=== PATIENT | male | born 1955 | race Caucasian/White ===

== ENCOUNTER 2023-06-30 09:40 | Outpatient (AMB) | payer MEDICARE, BC, SELFPAY ==
[2023-06-30 09:54] VITALS: BP 135/93; PULSE 103; RESP 18; TEMP 36.6; O2SAT 98; BMI 26.5
--- NOTE | 2023-06-30 09:54 | A.OFFVIS_ITS ---
Intake Vital Signs 3 06/30/23 09:54 Height 5 ft 11 in Weight 190 lb BMI 26.5 BP 135/93 H Blood Pressure Location Lt brachial Position Sitting Respiration 18 Pulse 103 H Pulse Source Pulse Oximeter Temp 98 F Pulse Oximetry (%) 98 Oxygen Delivery Method Room Air Intake Visit Reasons: Back pain - Confirmed Allergies No Known Allergies Allergy (Verified 06/30/23 09:51) HPI HPI Comments 2 History of Present Illness0 Details Alberto is a very pleasant 68-year-old male who presents the office today for evaluation of his acute back pain. He has been suffering with pain for approximately 3 weeks, he reports he injured his back while snow blowing. Initially thought that he had pulled a groin muscle but thin pain to the left lower back persisted. Endorses left leg numbness when he stands, he feels left leg weakness and is worried about falling. Denies red flag symptoms including new loss of bowel, bladder or saddle anesthesia. Currently wearing a back brace which provides him minimal relief. Significant pain with any movement and with position changes. No relief with Tylenol, Motrin or muscle relaxers. He has not started physical therapy, states the pain is too intense to participate in physical therapy at this time. Patient denies previous surgeries to lower back. He does report back pain in the past but never like this. In terms of muscle damage condition is described as aching, shooting, numb. Pain today is rated as a 9 of 10, constant and worse in the mornings. Pain is negatively impacting patient's general activity, enjoyment of life, mood, sleep and walking PFSH Medical History Lumbar strain Tobacco abuse Rosacea Prostatic hypertrophy Paroxysmal SVT (supraventricular tachycardia) Hypertension Colonic polyp Benign prostate hyperplasia Alcohol abuse Review of Systems Const All systems reviewed & are unremarkable except as noted in HPI and below Physical Exam Vital Signs: Last Vital Signs Temp 98 F 06/30/23 09:54 Pulse 103 H 06/30/23 09:54 Resp 18 06/30/23 09:54 BP 135/93 H 06/30/23 09:54 Pulse Ox 98 06/30/23 09:54 Oxygen Delivery Method Room Air 06/30/23 09:54 BMI result Body Mass Index 26.5 General: awake, alert, oriented. Answers questions appropriately. Fully engaged in examination. Skin: warm, dry, intact HEENT: Normocephalic. Hearing intact. Cardiac: External chest normal in appearance. Respiratory: No cough, audible wheezing or stridor. Abdomen: without gross distension. MS: No obvious swelling or deformities. Able to transition from sit to stand unassisted with obvious discomfort Ambulates with antalgic gait SLR positive on the left Tenderness to midline lumbar vertebrae, lumbar paraspinal, muscles left greater than right Strength 5/5 bilateral lower extremities Negative clonus negative footdrop Decreased range of motion. Pain increased with return from forward flexion. Neurological: Oriented to person, place, time and situation. Thought process intact. Psychiatric: Appropriate mood and affect. Good judgment and insight. Results Reviewed Results Reviewed: Assessment & Plan Assessment & Plan (1) Lumbar radiculopathy: Code(s): M54.16 - Radiculopathy, lumbar region Plan Alberto is a very pleasant 68-year-old male who presented to the office today for evaluation and management of his acute chronic back pain. Pain today is rated as a 9/10, no improvement with [id number] medications or muscle relaxers. Unable to participate in physical therapy due to the pain. oxycodone-acetaminophen 5-325 mg, 1 tab PO Q6H PRN, patient advised on cautions for use. MRI lumbar spine ordered for urgent evaluation. Review of x-ray shows compression deformities of the lumbar spine, patient now is worsening numbness and weakness of the left lower extremity. Patient advised to seek treatment in the emergency for red flag symptoms including new loss of bowel, bladder or saddle anesthesia. All questions and concerns answered, patient agrees to the plan. Patient will follow-up after MRI, sooner if needed Orders: Orders 2 MR lumbar spine wo con Today M54.16 - Radiculopathy, lumbar region Medications: New 2 oxycodone-acetaminophen 5-325 mg (Percocet) Partial Fill upon patient request. 1 tab PO Q6H PRN 30 tabs 0RF pain Coding Level of Care Code New Pt Level 4 (74800) Diagnoses Lumbar radiculopathy M54.16
== END 2023-06-30 10:10 | disposition home or self-care (01) ==
PROVIDERS: PCP Internal Medicine; Visit Provider Registered Nurse Emergency
DX: M54.16 Radiculopathy, lumbar region (principal)
CPT/HCPCS: 99204

== ENCOUNTER → 2023-06-30 09:40 | Outpatient (BNVA) | payer MEDICARE, BC, SELFPAY | PROVIDERS: PCP Internal Medicine; Visit Provider Registered Nurse Emergency | DX: M54.16 Radiculopathy, lumbar region (principal) | CPT/HCPCS: 99202 ==

== ENCOUNTER 2023-07-07 09:05 | Outpatient (AMB) | payer MEDICARE, BC, SELFPAY ==
[2023-07-07 09:06] VITALS: BMI 26.6
--- NOTE | 2023-07-07 09:06 | MHC.OFFVIS ---
Intake Vital Signs 07/07/23 09:06 Height 5 ft 11 in Weight 191 lb BMI 26.6 Intake Visit Reasons: discuss MRI results Residential Program Coordinator Required: No Allergies No Known Allergies Allergy (Verified 07/07/23 09:07) HPI HPI Comments History of Present Illness Details Telephone visit completed today with Alberto for follow up, review of MRI. Dr. Larios present during the phone call also. MRI reviewed, results as per below. Patient continues with axial back pain lower lumbar spine. He also reports the left leg numbness and tingling persists. He feels like the leg is weak when he stands. Pain is worse when rising from a seated position Denies red flag symptoms including new loss of bowel, bladder or saddle anesthesia. Has been taking the percocet with minimal improvement in his pain. Prior: Alberto is a very pleasant 68-year-old male who presents the office today for evaluation of his acute back pain. He has been suffering with pain for approximately 3 weeks, he reports he injured his back while snow blowing. Initially thought that he had pulled a groin muscle but thin pain to the left lower back persisted. Endorses left leg numbness when he stands, he feels left leg weakness and is worried about falling. Denies red flag symptoms including new loss of bowel, bladder or saddle anesthesia. Currently wearing a back brace which provides him minimal relief. Significant pain with any movement and with position changes. No relief with Tylenol, Motrin or muscle relaxers. He has not started physical therapy, states the pain is too intense to participate in physical therapy at this time. Patient denies previous surgeries to lower back. He does report back pain in the past but never like this. In terms of muscle damage condition is described as aching, shooting, numb. Pain today is rated as a 9 of 10, constant and worse in the mornings. Pain is negatively impacting patient's general activity, enjoyment of life, mood, sleep and walking PFSH Medical History Lumbar strain Tobacco abuse Rosacea Prostatic hypertrophy Paroxysmal SVT (supraventricular tachycardia) Hypertension Colonic polyp Benign prostate hyperplasia Alcohol abuse Review of Systems Const All systems reviewed & are unremarkable except as noted in HPI and below Physical Exam Vital Signs: BMI result Body Mass Index 26.6 physical exam deferred, telephone visit only Results Reviewed Results Reviewed: Assessment & Plan Assessment & Plan (1) Lumbar radiculopathy: Code(s): M54.16 - Radiculopathy, lumbar region (2) Sacral insufficiency fracture: Code(s): M84.48XA - Pathological fracture, other site, initial encounter for fracture (3) Lumbar spondylolysis: Code(s): M43.06 - Spondylolysis, lumbar region Plan Telephone visit completed today for follow up, review of recent MRI. Patient suffering with new S1/S2 insufficiency fracture after fall while snowblowing approx 4 weeks ago, lumbar radiculopathy and facet arthropathy. Unable to participate in physical therapy due to the pain. Has exhausted OTC medications, bracing, NSAIDs and opioid medications but pain persists. Declines refill of the percocet, has some at home. Discussed options for treatment including diagnostic interventional testing, epidural steroid injections, sacralplasty, peripheral nerve stimulation, RFA and more permanent neuromodulation. Detailed information provided to patient regarding sacroplasty, will send patient information in the mail. He states not able to review on-line. Will schedule for fluoroscopy guided left L3-4, L4-5 TFESI with local anesthetic. Will discuss sacrolasty further with Dr. Larios at procedure appointment. All questions and concerns answered, patient agrees to the plan. Patient will follow-up after procedure, sooner if needed Telehealth Telehealth Location of provider rendering services: practice address Location of patient: address on file Patient Identification confirmed using: Name, : Yes Telehealth method: voice only Patient verbally consented to treatment: Yes Patient verbally consented to billing insurance company: Yes Patient informed of any privacy concerns related to visit: Yes Minutes spent on Phone/Video with Pt.: 11 Coding Level of Care Code Tele Est Pt Level 3 (28172) Diagnoses Lumbar radiculopathy M54.16 Sacral insufficiency fracture M84.48XA Lumbar spondylolysis M43.06 Time Spent (min) 11
== END 2023-07-07 09:13 | disposition home or self-care (01) ==
LOC: HO.PMC 09:05
PROVIDERS: PCP Internal Medicine; Visit Provider Registered Nurse Emergency
DX: M54.16 Radiculopathy, lumbar region (principal); M84.48XA Pathological fracture, other site, initial encounter for fracture; M43.06 Spondylolysis, lumbar region
CPT/HCPCS: 99442

== ENCOUNTER → 2023-07-07 09:05 | Outpatient (BNVA) | payer MEDICARE, BC, SELFPAY | PROVIDERS: PCP Internal Medicine; Visit Provider Registered Nurse Emergency ==

== ENCOUNTER 2023-07-12 06:35 | Outpatient (REF) | payer MEDICARE, BC, SELFPAY ==
--- NOTE | ~2023-07-12 | FL_ITS ---
EXAMINATION: XR FLUOROSCOPY WITH IMAGES CLINICAL INFORMATION: Radiculopathy of lumbar region COMPARISON: None available. TECHNIQUE: Fluoroscopy Supervised By: Dr. Larios. Fluoroscopy Time: 0.5 min Cumulative Dose: 15.7 mGy. DAP: 0.266 mGym2. Images: 2. FL/FL guidance in treatment room FINDINGS AND IMPRESSION: This report is provided to document use of fluoroscopic imaging equipment during a pain management procedure. Multilevel osteophyte formation and degenerative loss of disc height of the degenerated spine. These images were obtained during a transforaminal injection procedure along left L4 nerve root.
== END 2023-07-12 06:36 | disposition home or self-care (01) ==
LOC: CF 06:35
PROVIDERS: Visit Provider Anesthesiology
DX: M54.16 Radiculopathy, lumbar region (principal); M43.06 Spondylolysis, lumbar region
CPT/HCPCS: 64483; 64484; J3301; Q9967

== ENCOUNTER 2023-07-12 12:44 | Outpatient (AMB) | payer MEDICARE, BC, SELFPAY ==
[2023-07-12 13:08] VITALS: BP 122/60; PULSE 69; RESP 16; O2SAT 98; BMI 27.2
--- NOTE | 2023-07-12 13:08 | A.OFFVIS_ITS ---
Intake Vital Signs 07/12/23 13:08 07/12/23 14:26 Height 5 ft 11 in 5 ft 11 in Weight 195 lb 195 lb BMI 27.2 27.2 BP 122/60 120/70 Blood Pressure Location Lt brachial Lt brachial Position Sitting Sitting Respiration 16 16 Pulse 69 105 H Pulse Source Pulse Oximeter Pulse Oximeter Pulse Oximetry (%) 98 98 Oxygen Delivery Method Room Air Room Air Comment pre-op Post-op Intake Visit Reasons: (L) L3-L4, L4-L5 TFESI Wet Cleaner Machine Required: No Accompanied by: Spouse Allergies No Known Allergies Allergy (Verified 07/12/23 13:11) PFSH Medical History Lumbar strain Tobacco abuse Rosacea Prostatic hypertrophy Paroxysmal SVT (supraventricular tachycardia) Hypertension Colonic polyp Benign prostate hyperplasia Alcohol abuse Physical Exam Vital Signs: Last Vital Signs Pulse 105 H 07/12/23 14:26 Resp 16 07/12/23 14:26 BP 120/70 07/12/23 14:26 Pulse Ox 98 07/12/23 14:26 Oxygen Delivery Method Room Air 07/12/23 14:26 BMI result Body Mass Index 27.2 Assessment & Plan Assessment & Plan (1) Lumbar spondylolysis: Code(s): M43.06 - Spondylolysis, lumbar region (2) Lumbar radiculopathy: Code(s): M54.16 - Radiculopathy, lumbar region Plan Transforaminal epidural steroid injection L3-L4 and L4-5 on the left. Informed consent was thoroughly explained to the patient before the procedure.? The patient came to the operating room.? He was positioned prone on operating table with a pillow under his abdomen.? Time-out was performed delineating correct site and side of the procedure, nature of the injection, name and date of of the patient. The lower back of the patient was prepped with ChloraPrep and draped with sterile utility towels.? C-arm was brought over the operating field and sq picture of L3 and sequentially L4 vertebra were demonstrated on the screen.? The left side was chosen as the side of the injection.? Tilting machine ipsilateral to the left at the level of L3 1st the most prominent picture of the left pedic le was obtained on the screen.? 3 mm below the level of the lowest point of the pedicle projection to the skin small amount of lidocaine 1% 3-4 cc was injected to anesthetize the skin.? After that 5 in 22 gauge Quincke point needle was inserted through the skin wheal and was advanced to the L3-L4 foramina on anterior posterior and oblique views intermittently.? When tip of the needle entered foramina projection on AP view injection of the contrast was performed demonstrating epidural and perineural spread of the contrast.? After that injection of the treatment medicine 3 cc of lidocaine 2 % was injected into the foramina.? Injection of the contrast and injection of the treatment medicine was observed live on the screen.? No intrathecal and no intravascular spread of the contrast was noted. After that the procedure was performed in the same very fashion on L4-5 level. Same local anesthetic was used for injection. Upon completion of the procedure sterile Band-Aids were applied. Patient tolerated procedure well he was taken outside of the operating room where he recovered uneventfully.? He went home without immediate complications. Orders: Orders FL guidance in treatment room 07/12/23 M54.16 - Radiculopathy, lumbar region Coding Level of Care Code Procedure Only Diagnoses Lumbar spondylolysis M43.06 Lumbar radiculopathy M54.16
[2023-07-12 14:26] VITALS: BP 120/70; PULSE 105; RESP 16; O2SAT 98; BMI 27.2
== END 2023-07-12 14:40 | disposition home or self-care (01) ==
LOC: HO.PMCPRC 12:45
PROVIDERS: PCP Internal Medicine; Visit Provider Anesthesiology
DX: M54.16 Radiculopathy, lumbar region (principal); M43.06 Spondylolysis, lumbar region
CPT/HCPCS: 64483; 64484

== ENCOUNTER 2023-07-18 10:25 | Outpatient (AMB) | payer MEDICARE, BC, SELFPAY ==
--- NOTE | 2023-07-18 10:26 | A.OFFVIS_ITS ---
Intake Vital Signs 3 07/18/23 10:35 Height 5 ft 11 in Weight 183 lb 2 oz BMI 25.5 BP 130/70 Blood Pressure Location Lt brachial Position Sitting Respiration 14 Pulse 71 Pulse Source Pulse Oximeter Pulse Oximetry (%) 97 Oxygen Delivery Method Room Air Intake Visit Reasons: dx left l3-l4, l4-l5 TFESI/Confirm Intake Note: Patient comes in for post-op appointment. Reports pain 12/23. Allergies No Known Allergies Allergy (Verified 07/18/23 10:35) HPI HPI Comments 2 History of Present Illness0 Details Alberto is back in my office with complains on pain in the pelvic area with radiation into the left lower extremity and tenderness on palpation in the projection of the sacral bone. On the MRI he has edema in the projection of the sacral bone which is a demonstrating sacral insufficiency. Diagnostic left L4-5 and L3-L4 transforaminal epidural steroid injection did not result in any pain improvement. He felt might be slight pain decrease in the 1st hour after the procedure however it went back to previous pain level in 2-3 hours after the procedure. I offered him today sacral plasty and patient agreed to go for the procedure. I will schedule him the procedure accordingly. Prior: Alberto is a very pleasant 68-year-old male who presents the office today for evaluation of his acute back pain. He has been suffering with pain for approximately 3 weeks, he reports he injured his back while snow blowing. Initially thought that he had pulled a groin muscle but thin pain to the left lower back persisted. Endorses left leg numbness when he stands, he feels left leg weakness and is worried about falling. Denies red flag symptoms including new loss of bowel, bladder or saddle anesthesia. Currently wearing a back brace which provides him minimal relief. Significant pain with any movement and with position changes. No relief with Tylenol, Motrin or muscle relaxers. He has not started physical therapy, states the pain is too intense to participate in physical therapy at this time. Patient denies previous surgeries to lower back. He does report back pain in the past but never like this. In terms of muscle damage condition is described as aching, shooting, numb. Pain today is rated as a 9 of 10, constant and worse in the mornings. Pain is negatively impacting patient's general activity, enjoyment of life, mood, sleep and walking PFSH Medical History Lumbar strain Tobacco abuse Rosacea Prostatic hypertrophy Paroxysmal SVT (supraventricular tachycardia) Hypertension Colonic polyp Benign prostate hyperplasia Alcohol abuse Review of Systems Const All systems reviewed & are unremarkable except as noted in HPI and below ENT Reports Normal hearing present Neuro Reports Normal hearing present, Denies Abnormal speech present, Denies confusion and Denies Sensory deficit (Neuro) Psych Denies confusion Physical Exam Vital Signs: Last Vital Signs Pulse 71 07/18/23 10:35 Resp 14 07/18/23 10:35 BP 130/70 07/18/23 10:35 Pulse Ox 97 07/18/23 10:35 Oxygen Delivery Method Room Air 07/18/23 10:35 BMI result Body Mass Index 25.5 Const General: no acute distress; No confusion Orientation/consciousness: patient oriented x3 and No confusion Eyes General: appearance normal, both eyes and all related structures Pupils: Equal, round and reactive pupils present EOM: EOMs intact bilaterally Neck Neck: Yes full ROM Chest Chest palpation & inspection: normal inspection of the chest Resp Effort & Inspection: normal respiratory effort, able to speak in complete sentences, normal respiratory pattern, no audible wheezes and no cough Cardio Jugular venous distension: no JVD GI Inspection: Yes normal to inspection Back/Spine/Pelvis Other: No obvious swelling or deformities. Able to transition from sit to stand unassisted with obvious discomfort Ambulates with antalgic gait SLR positive on the left Tenderness to midline lumbar vertebrae, lumbar paraspinal, muscles left greater than right Strength 5/5 bilateral lower extremities Negative clonus negative footdrop Decreased range of motion. Pain increased with return from forward flexion. Neuro General: patient oriented x3, gait normal and No confusion Cranial nerves: Yes CN's II-XII intact bilaterally, Yes Equal, round and reactive pupils present, Yes Normal hearing present and Yes Ability to bilaterally elevate shoulders present Speech: No Abnormal speech present Gait exam (Neuro): Normal gait present Motor exam (neuro): 5/5 motor strength present throughout Sensory Exam: No Sensory deficit (Neuro) Extrem General: No pedal edema Psych Speech and movement: Normal speech and movement present Affect: normal affect Attitude: cooperative Thought process: Normal thought process present Thought content: Normal thought content present Insight: Good insight present (Psych) Judgement: Good judgement present (Psych) Results Reviewed Results Reviewed: Assessment & Plan Assessment & Plan (1) Lumbar radiculopathy: Code(s): M54.16 - Radiculopathy, lumbar region (2) Sacral insufficiency fracture: Code(s): M84.48XA - Pathological fracture, other site, initial encounter for fracture (3) Lumbar spondylolysis: Code(s): M43.06 - Spondylolysis, lumbar region Plan Patient suffering with new sacral insufficiency fracture after fall while snowblowing approx 8 weeks ago, lumbar radiculopathy and facet arthropathy. Unable to participate in physical therapy due to the pain. Has exhausted OTC medications, bracing, NSAIDs and opioid medications but pain persists. Denies Percocet helping his pain. Diagnostic left L3-L4 L4-5 transforaminal epidural steroid injection resulted in no pain improvement see above. I offered sacroplasty to the patient today patient agreed to go for the procedure. I need to evaluate his CT scan so I will order CT of bony pelvis tomeka. I will schedule the procedure for the sacroplasty as soon as possible as well. Orders: Orders 2 CT bony pelvis Today M84.48XA - Pathological fracture, other site, initial encounter for fracture Coding Level of Care Code Est Pt Level 3 (52898) Diagnoses Lumbar radiculopathy M54.16 Sacral insufficiency fracture M84.48XA Lumbar spondylolysis M43.06
[2023-07-18 10:35] VITALS: BP 130/70; PULSE 71; RESP 14; O2SAT 97; BMI 25.5
== END 2023-07-18 11:15 | disposition home or self-care (01) ==
PROVIDERS: PCP Internal Medicine; Visit Provider Anesthesiology
DX: M54.16 Radiculopathy, lumbar region (principal); M84.48XA Pathological fracture, other site, initial encounter for fracture; M43.06 Spondylolysis, lumbar region
CPT/HCPCS: 99213

== ENCOUNTER → 2023-07-18 10:25 | Outpatient (BNVA) | payer MEDICARE, BC, SELFPAY | PROVIDERS: PCP Internal Medicine; Visit Provider Anesthesiology ==

== ENCOUNTER 2023-07-19 08:43 | Outpatient (REF) | payer MEDICARE, BC, SELFPAY ==
--- NOTE | ~2023-07-19 | CT_ITS ---
EXAMINATION: CT PELVIS WITHOUT CONTRAST CLINICAL INFORMATION: Pathological fracture. COMPARISON: None available. TECHNIQUE: Helical scanning was performed with submillimeter collimation through the pelvis. Sagittal and coronal multiplanar 2-D reconstructions were obtained. This CT examination was performed using dose optimization techniques as appropriate, variously including the following: *Automated exposure control *Adjustment of mA and/or kV according to patient size (this includes techniques or standardized protocols for targeted exams where dose is matched to indication/reason for exam; i.e. extremities or head) *Use of iterative reconstruction technique DLP: 303 mGy-cm FINDINGS: PELVIS: There is scattered stool, diverticuli and gas seen throughout the sigmoid colon without diverticulitis or distention. There is urinary bladder is distended without wall thickening. No free air, free fluid or abnormal pelvic lymphadenopathy. No evidence of hernia. OSSEOUS STRUCTURES: Bilateral hip joints and SI joints are symmetrical and normal. There is diffuse osteopenia. There is a nondisplaced inferior pubic ramus/ischial junction fracture. Small lucency is seen within the left pubic bone likely a pathological fracture. A nondisplaced fracture right pubic bone is noted as well. Acetabular and proximal femur appear normal. There is a nondisplaced stress fracture bilateral sacrum. There are subchondral cystic changes in bilateral acetabula likely degenerative arthritis. The soft tissues are normal. Mild degenerative disc changes with vacuum disc phenomena L5/S1 disc level. There is mild ventral spondylosis L3-L4, L4-L5, L5-S1 disc level. CT/CT bony pelvis IMPRESSION: Pathological fracture left intrahepatic superior pubic ramus with mild displacement. Nondisplaced right anterior superior pubic ramus fracture. Nondisplaced fracture at the junction of left inferior pubic ramus and the sternum. Degenerative arthritic changes bilateral hip joints with no fracture involving the hip joint or the femur. Nondisplaced fractures bilateral sacrum. Consider sacroplasty. There is diffuse osteopenia/osteoporosis. Colonic diverticulosis without diverticulitis. Diffuse osteopenia.
== END 2023-07-19 08:44 | disposition home or self-care (01) ==
LOC: HO.CT 08:43
PROVIDERS: PCP Internal Medicine; Visit Provider Anesthesiology
DX: M84.48XA Pathological fracture, other site, initial encounter for fracture (principal)
CPT/HCPCS: 72192; 99212

== ENCOUNTER 2023-07-29 07:02 | Day surgery (SDC) | payer MEDICARE, BC, SELFPAY ==
[2023-07-29] VITALS (8 sets, daily range): BP systolic 129–155; BP diastolic 52–85; PULSE 60–67; RESP 9–18; TEMP 36.2–36.3; O2SAT 96–100; BMI 24.7
--- NOTE | ~2023-07-29 | FL_ITS ---
EXAMINATION: XR FLUOROSCOPY WITH IMAGES CLINICAL INFORMATION: Sacroplasty. COMPARISON: CT pelvis dated 07/19/2023. TECHNIQUE: Fluoroscopy Supervised By: Dr. Shawn Larios. Fluoroscopy Time: 2 minutes and 34 seconds. Cumulative Dose: 80.356 mGy. DAP: 21.099 Gycm2. Images: 2. FINDINGS: The submitted images show cement applied to the bilateral sacral ala. FL/FL guidance in OR IMPRESSION: Intraoperative fluoroscopic guidance is provided during sacroplasty. Please see the patient's Operative Report for full procedural details.
--- NOTE | 2023-07-29 07:55 | P.CONAN_ITS ---
[facility] Active Problems Active Problems: All Active Problems (Updated 07/07/23 @ 09:29 by Tsering Langston, QUANTITATIVE DEVELOPER, [employer] OPERATOR) Lumbar spondylolysis (Acute) Sacral insufficiency fracture (Acute) Lumbar radiculopathy (Acute) Past Medical History Medical History Lumbar strain Tobacco abuse Rosacea Prostatic hypertrophy Paroxysmal SVT (supraventricular tachycardia) Hypertension Colonic polyp Benign prostate hyperplasia Alcohol abuse Family History Family history of problems with anesthesia: No Surgical History Surgical History (Updated 07/29/23 @ 07:56 by Denisa Fortune RN) Hx of hernia repair Hx of foot surgery Hx of colonoscopy History of Problems with Anesthesia: No Social History Social History Patient Tobacco Use Status: Current everyday Tobacco user Are you DNR?: No Advance Directives: No Advance Directives Information Provided: Yes Nutrition Risks: No Nutritional Risk Meds Allergies Allergy/AdvReac Type Severity Reaction Status Date / Time No Known Allergies Allergy Verified 07/18/23 10:35 Active Medications: Current Medications Cefazolin Sodium/Dextrose (Ancef) 2 gm in 50 mls @ 100 mls/hr IV PREOP ONE Stop: 07/29/23 08:02 Lactated Ringer's (Lr) 1,000 mls @ 50 mls/hr IVCONT .Q20H YAYO Home Medications Medication Instructions Recorded Confirmed Last Taken Type lisinopril 10 mg tablet 10 mg PO DAILY 06/28/23 07/29/23 07/28/23 History metoprolol succinate 50 mg 50 mg PO DAILY 06/28/23 07/29/23 07/29/23 History tablet,extended release 24 hr 50 mg Exam Height,Weight and Vital Signs: Height 5 ft 11 in Weight 80.371 kg Last Vital Signs Temp 97.4 F 07/29/23 07:34 Pulse 67 07/29/23 07:34 Resp 18 07/29/23 07:34 BP 129/52 L 07/29/23 07:34 Pulse Ox 97 07/29/23 07:34 O2 Del Method Room Air 07/29/23 07:34 Airway Mallampati Class: III TM Dist: <=3cm Neck ROM: Full Loose/Missing/Broken Teeth: No Heart: rrr Lungs: cta b/l Assessment and Plan Final Anesthetic Review Family History of Problems with Anesthesia: No History of Problems with Anesthesia: No NPO: Yes ASA Class: II Final Preanesthetic Review: No Changes in Pt Med Stat, Meds/Allgs Chart Reviewed, Consent Obtained/Reviewed and Anes Risks/Benef Reviewed Patient Risk: Intermediate Procedure Risk: Intermediate Anesthetic Plan Anesthetic Plan: GA Disposition: Standard PACU
[2023-07-29] MEDS: Lactated Ringers 1,000 ML 50 ML IVCONT (08:09)
--- NOTE | 2023-07-29 08:09 | MHC.SHP ---
Pre-Procedural Eval Section A - 24 Hr Update-Section A only Date of Service: 07/29/23 The patient is an INPATIENT: No Changes since office visit: Yes Patient answered all questions The patient has been examined within 24 hours of the surgical procedure. The History & Physical has been completed within 30 days and I have reviewed it.: No Section B - Complete if H&P > 30 days Chief Complaint: Pathological fracture, other site, Details of Present Illness: sacral insufficiency fracture Relevant Family History (Specify if Yes): No Relevant Social History: None Present Medications: see Short Stay Collaborative assessment Medical History: Significant History History of Previous Operations: No relevant previous surgery Allergies: Allergies Allergy/AdvReac Type Severity Reaction Status Date / Time No Known Allergies Allergy Verified 07/18/23 10:35 Review of Systems Sugical H&P ROS: Negative: Constitution, Cardiovascular, Respiratory, Neurological, Psychiatric, Hem-Onc, Allergic/Immunologic, Gastrointestinal, Genitourinary, Musculoskeletal, Integumentary, Endocrine and Eyes/Ears/Nose/Throat Exam Surgical H&P Exam: Normal: HEENT, Normal: Heart, Normal: Lungs, Normal: Extremities, Normal: Abdomen, Normal: Skin and Normal: Neurological Plan I have reviewed the history and physical and performed a pertinent physical examination on my patient. No changes have occurred unless specified. Time Spent With Patient Time: Total time managing care of this patient today ____ minutes.
--- NOTE | 2023-07-29 11:04 | P.BOP_ITS ---
Brief Operative Note Date of Service: 07/29/23 Pre-op diagnosis: Sacral insufficiency fracture Post-op diagnosis: same Procedure: Bilateral sacroplasty. Implants: Methyl methacrylate cement Surgeon: Shawn Larios MD Anesthesia: GETA Was an Disability Specialist used for this Procedure?: No Estimated blood loss (mL): 4 Pathology: none sent Condition: stable Disposition: PACU
--- NOTE | 2023-07-29 11:05 | W.PM.OPN ---
Operative Note Operative Note Date of Service: 07/29/23 Narrative: Sacroplasty bilateral long axis procedure. Alberto is very pleasant 68 y.o. man who presented in my office with severe intractable low back pain with radiculopathy symptoms in the left lower extremity. TFESI on the L5- S1 left side did not alleviate his pain, while on the lumbar MRI along side with lumbar disc degeneration sacral insufficiency was diagnosed. He was sent for CT scan of the pelvis and the study demonstrated bilateral sacral insufficiency fractures as well as pathological fracture of left inferior ramus of the pubic bone with mild displacement without pelvic stability compromise. Patient was offered sacroplasty. He agreed to go for the procedure. He came today to the operating room to perform this procedure. Informed consent was thoroughly explained to the patient delineating list of risks including bleeding, infection, peripheral nerve damage, post dural puncture headache. Also he was explained about his pubic fractures and need to perform a biopsy. He expressed understanding and agreed to go for pathological fracture biopsy of the pubis bone ?as long as this is covered by insurance ?. The patient came to the operating room and he was positioned supine on the stretcher. [employer] monitors were applied and general anesthesia with endotracheal intubation was induced, difficult intubation was encountered, glide scope was used. After successful secure of the patient's airway he was transferred on the operating table prone, all pressure points were protected. Time-out was performed delineating name and date of of the patient, side and sites of the procedure, need for antibiotic prophylaxis, allergies, risk of fire, need for DVT prophylaxis. The patient received 2 g of cefazolin approximately 25 minutes before the procedure. DVT prophylaxis with calf compression device. The patient's lower back was prepped with ChloraPrep and draped with sterile utility towels and full body fenestrated drape, while two sterilely draped C-arms were brought over the operating field for performance of the procedure. The patient's right side was chosen as the initial start of the injection. Under image guidance right-sided sacral bone was chosen as the target of the 10 gauge trocar insertion. The point of insertion was chosen on AP projection between S2 and S3 sacral foramina projection lateral to the silhouettes of the foraminas approximately at the middle distance between lateral foraminal line and the silhouette of the sacroiliac joint. The point of trocar advancement was injected with small amount of local anesthetic lidocaine 2% mixed with ropivacaine one-to-one and after that 11 blade scalpel was used to make a tina in the skin. The trocar was advanced through the soft tissues to the bone with bevel tip facing ventral side. The advancement of the trocar on the anterior posterior view was chosen to go alongside medial (sacral) border of the sacroiliac joint and on anterior posterior view the trocar was advanced as closed to the ventral silhouette of the sacral bone on lateral view as possible. The anterior limitation of the trocar advancement was kept away from safety anterior ventral triangle image. When advancement of the trocar was completed the 8 mL of methilmethacrylate cement total was injected into the fracture while the trocar was slowly withdrawn from the body of the sacral bone.. After that the procedure was repeated on the left side with mirroring fashion using same size trocar, again approximately 8 mL of cement was used to fill up the fracture. Upon completion of trocar withdrawals the puncture wounds were dry, 2 silk sutures were applied to the puncture sites and sterile dressing using bacitracin 2 x 2 covered with Tegaderm was applied. Upon completion of the procedure patient was transferred supine on the stretcher, awakened, extubated and transferred stable to PACU. In PACU he reported immediate alleviation of the pain.
== END 2023-07-29 13:10 | disposition home or self-care (01) ==
PROVIDERS: PCP Internal Medicine; Visit Provider Anesthesiology
PROC: (CPT 0201T; principal; 2023-07-29 09:00)
DX: M48.48XA Fatigue fracture of vertebra, sacral and sacrococcygeal region, initial encounter for fracture (principal); M54.16 Radiculopathy, lumbar region; M43.06 Spondylolysis, lumbar region; I10 Essential (primary) hypertension; I47.19 Other supraventricular tachycardia
CPT/HCPCS: 0201T; C1713; J0131; J0690; J1100; J2250; J2371; J2405; J2704; J2795; J3010; Q9967

== ENCOUNTER 2023-08-04 10:52 | Outpatient (AMB) | payer MEDICARE, BC, SELFPAY ==
--- NOTE | 2023-08-04 10:53 | MHC.OFFVIS ---
Intake Vital Signs 08/04/23 10:58 Height 5 ft 11 in Weight 177 lb BMI 24.7 BP 168/80 H Blood Pressure Location Lt brachial Position Sitting Respiration 12 Pulse 86 Pulse Source Pulse Oximeter Pulse Oximetry (%) 99 Oxygen Delivery Method Room Air Intake Visit Reasons: S/p Sacroplasty 07/29/23 Intake Note: Patient comes in for post-op appointment. Reports pain 0/10. Allergies No Known Allergies Allergy (Verified 08/04/23 10:58) HPI HPI Comments History of Present Illness Details Alberto is back in my office after sacroplasty. He reports excellent pain relief after the procedure. He reports improved mobility, for the stability and safety he is using walker for ambulation however he reports normal strength of bilateral lower extremities. He reports minor pain in the left foot in the morning which most likely not related to his pelvic condition. He also was discovered with pathological fracture of left inferior ramus of pubis. She is scheduled on 08/11/2023 for interventional radiology biopsy of the lesion. I explained the ramifications of the lesion to the patient. He had multiple questions and all of them were answered to the patient to his satisfaction. On the MRI he has edema in the projection of the sacral bone which is a demonstrating sacral insufficiency. Diagnostic left L4-5 and L3-L4 transforaminal epidural steroid injection did not result in any pain improvement. Prior: Alberto is a very pleasant 68-year-old male who presents the office today for evaluation of his acute back pain. He has been suffering with pain for approximately 3 weeks, he reports he injured his back while snow blowing. Initially thought that he had pulled a groin muscle but thin pain to the left lower back persisted. Endorses left leg numbness when he stands, he feels left leg weakness and is worried about falling. Denies red flag symptoms including new loss of bowel, bladder or saddle anesthesia. Currently wearing a back brace which provides him minimal relief. Significant pain with any movement and with position changes. No relief with Tylenol, Motrin or muscle relaxers. He has not started physical therapy, states the pain is too intense to participate in physical therapy at this time. Patient denies previous surgeries to lower back. He does report back pain in the past but never like this. In terms of muscle damage condition is described as aching, shooting, numb. Pain today is rated as a 9 of 10, constant and worse in the mornings. Pain is negatively impacting patient's general activity, enjoyment of life, mood, sleep and walking PFSH Medical History Lumbar strain Tobacco abuse Rosacea Prostatic hypertrophy Paroxysmal SVT (supraventricular tachycardia) Hypertension Colonic polyp Benign prostate hyperplasia Alcohol abuse Surgical History (Updated 07/29/23 @ 07:56 by Denisa Fortune RN) Hx of hernia repair Hx of foot surgery Hx of colonoscopy Social History Patient Tobacco Use Status: Current everyday Tobacco user Review of Systems Const All systems reviewed & are unremarkable except as noted in HPI and below ENT Reports Normal hearing present Neuro Reports Normal hearing present, Denies Abnormal speech present, Denies confusion and Denies Sensory deficit (Neuro) Psych Denies confusion Physical Exam Vital Signs: Last Vital Signs Pulse 86 08/04/23 10:58 Resp 12 08/04/23 10:58 BP 168/80 H 08/04/23 10:58 Pulse Ox 99 08/04/23 10:58 Oxygen Delivery Method Room Air 08/04/23 10:58 BMI result Body Mass Index 24.7 Const General: no acute distress; No confusion Orientation/consciousness: patient oriented x3 and No confusion Eyes General: appearance normal, both eyes and all related structures Pupils: Equal, round and reactive pupils present EOM: EOMs intact bilaterally Neck Neck: Yes full ROM Chest Chest palpation & inspection: normal inspection of the chest Resp Effort & Inspection: normal respiratory effort, able to speak in complete sentences, normal respiratory pattern, no audible wheezes and no cough Cardio Jugular venous distension: no JVD GI Inspection: Yes normal to inspection Back/Spine/Pelvis Other: No obvious swelling or deformities. Able to transition from sit to stand unassisted with obvious discomfort Ambulates with antalgic gait SLR positive on the left Tenderness to midline lumbar vertebrae, lumbar paraspinal, muscles left greater than right Strength 5/5 bilateral lower extremities Negative clonus negative footdrop Decreased range of motion. Pain increased with return from forward flexion. Neuro General: patient oriented x3, gait normal and No confusion Cranial nerves: Yes CN's II-XII intact bilaterally, Yes Equal, round and reactive pupils present, Yes Normal hearing present and Yes Ability to bilaterally elevate shoulders present Speech: No Abnormal speech present Gait exam (Neuro): Normal gait present Motor exam (neuro): 5/5 motor strength present throughout Sensory Exam: No Sensory deficit (Neuro) Extrem General: No pedal edema Psych Speech and movement: Normal speech and movement present Affect: normal affect Attitude: cooperative Thought process: Normal thought process present Thought content: Normal thought content present Insight: Good insight present (Psych) Judgement: Good judgement present (Psych) Assessment & Plan Assessment & Plan (1) Lumbar radiculopathy: Code(s): M54.16 - Radiculopathy, lumbar region (2) Sacral insufficiency fracture: Code(s): M84.48XA - Pathological fracture, other site, initial encounter for fracture (3) Lumbar spondylolysis: Code(s): M43.06 - Spondylolysis, lumbar region Plan Reports no pain today. Today is day 6 after bilateral sacroplasty. Before the sacroplasty I attempted Diagnostic left L3-L4 L4-5 transforaminal epidural steroid injection which resulted in no pain improvement. CT scan performed to plan sacroplasty demonstrated incidental finding of the left inferior pubic ramus in the form of pathological fracture. Patient is scheduled for CT-guided biopsy with Interventional Radiology on 08/11/2023. He will schedule appointment with me after the IR procedure. Patient Instructions: I here by testify that I spent 34 minutes in conversation with this patient as well as evaluating his prior records, planning his care and organizing his note. Coding Level of Care Code Est Pt Level 4 (95517) Diagnoses Lumbar radiculopathy M54.16 Sacral insufficiency fracture M84.48XA Lumbar spondylolysis M43.06
[2023-08-04 10:58] VITALS: BP 168/80; PULSE 86; RESP 12; O2SAT 99; BMI 24.7
== END 2023-08-04 11:42 | disposition home or self-care (01) ==
PROVIDERS: PCP Internal Medicine; Visit Provider Anesthesiology
DX: M54.16 Radiculopathy, lumbar region (principal); M84.48XA Pathological fracture, other site, initial encounter for fracture; M43.06 Spondylolysis, lumbar region
CPT/HCPCS: 99214

== ENCOUNTER → 2023-08-04 10:52 | Outpatient (BNVA) | payer MEDICARE, BC, SELFPAY | PROVIDERS: PCP Internal Medicine; Visit Provider Anesthesiology | DX: M84.454D Pathological fracture, pelvis, subsequent encounter for fracture with routine healing (principal); M54.16 Radiculopathy, lumbar region; M43.06 Spondylolysis, lumbar region; Z98.890 Other specified postprocedural states | CPT/HCPCS: 99212 ==

== ENCOUNTER 2023-08-11 08:43 | Day surgery (SDC) | payer MEDICARE, BC, SELFPAY ==
--- NOTE | ~2023-08-11 | CT_ITS ---
Patient presents with a lytic lesion of the left superior pubic ramus. PROCEDURES: 1. Limited preprocedure CT of the pelvis. Permanent images saved in PACS. 2. CT biopsy and aspiration of left superior pubic ramus fracture site CLINICIANS: Saleem Busby PA-C Preprocedural imaging reviewed with Dr. Martin MEDICATIONS: -Versed 2 mg, Fentanyl 100 mcg, and lidocaine 1% 10 mL SQ -Antibiotics: None -For additional details, please see nursing flowsheet. COMPLICATIONS: None ESTIMATED BLOOD LOSS: < 5 ml CONTRAST: None SPECIMENS: 2 x 18 g cores placed in formalin. 22-gauge aspiration placed in CytoLyt MODERATE SEDATION TIME: 17 min PROCEDURE NOTE: The procedure, risks, benefits, and alternatives were carefully explained to the patient and written informed consent was obtained. The patient was placed supine on the CT table. A timeout was performed. A limited CT of the pelvis was performed to localize the left superior pubic ramus fracture site and choose appropriate needle entry and trajectory. The patient was prepped and draped in usual sterile fashion. The skin and subcutaneous tissues were anesthetized with lidocaine. Under CT guidance, a 17-gauge coaxial trocar needle was advanced into the left superior pubic ramus fracture site. An 18-gauge biopsy device was inserted through the coaxial needle, with the tip positioned in the superior pubic ramus fracture site. 2 core biopsies were obtained and placed in formalin. Next, a 22-gauge Chiba needle was inserted through the coaxial needle, with the tip in the fracture site. An aspiration was performed and placed in CytoLyt. The needle was removed. A dry dressing was applied and secured with a Tegaderm. There were no immediate complications. The patient was stable after the procedure and was transferred to the post anesthesia care unit. The procedure was done under moderate sedation with a dedicated nurse for monitoring of vital signs. CT/CT biopsy bone superficial Impression: CT-guided biopsy aspiration of the left superior pubic ramus fracture site. This procedure was performed by Saleem Busby PA-C and supervised by Dr. Martin.
[2023-08-11 09:12] VITALS: BMI 25.7
[2023-08-11 09:57] LABS: MANUAL DIFF FLAG NO
[2023-08-11 10:00] LABS: Basophils Percent Auto 0.6 % (0-2); Eosinophils Percent Auto 0.8 % (0-4); Hematocrit 41.8 % (42.0-52.0); Hemoglobin 14.8 g/dl (14.0-18.0); Imm Gran Abs Auto 0.02 X10*3/uL (0.00-0.03); Imm Gran Pct Auto 0.4 % (0.0-0.4); Lymphocytes Absolute Auto 1.6 X10*3/uL (1.2-4.9); Lymphocytes Percent Auto 31.1 % (20-40); Mean Corpuscular HGB Conc 35.4 g/dl (31.0-36.0); Mean Corpuscular Hemoglobin 33.8 pg (27.0-33.0); Mean Corpuscular Volume 95.4 fL (80.0-98.0); Mean Platelet Volume 8.4 fL (9.4-12.4); Monocytes Absolute Auto 0.5 X10*3/uL (0.1-1.2); Monocytes Percent Auto 9.5 % (2-11); Neutrophils Absolute Auto 2.9 x10*3/uL (2.0-8.3); Neutrophils Percent Auto 57.6 % (45-73); Platelet Count 168 X10*3/uL (160-400); Red Blood Count 4.38 X10*6/uL (4.60-5.80); Red Cell Distribution Width 12.5 % (11.0-16.0); White Blood Count 5.1 X10*3/uL (4.8-10.8)
[2023-08-11 10:13] LABS: Prothrombin Time 12.5 SEC (11.1-13.3)
[2023-08-11 10:16] LABS: Partial Thromboplastin Time 33.4 SEC (26.0-36.8)
[2023-08-11 11:20] VITALS: BP 128/89; PULSE 80; RESP 16; TEMP 36.5; O2SAT 97
[2023-08-11 11:31] VITALS: BP 132/96; PULSE 85; RESP 16; TEMP 36.5; O2SAT 96
== END 2023-08-11 11:36 | disposition home or self-care (01) ==
PROVIDERS: Physician Assistant Surgical; PCP Internal Medicine; Visit Provider Anesthesiology
DX: M84.454A Pathological fracture, pelvis, initial encounter for fracture (principal); R60.9 Edema, unspecified; M43.06 Spondylolysis, lumbar region; M54.16 Radiculopathy, lumbar region; M79.672 Pain in left foot; R20.0 Anesthesia of skin; Z99.89 Dependence on other enabling machines and devices; I10 Essential (primary) hypertension; I47.19 Other supraventricular tachycardia; L71.9 Rosacea, unspecified; N40.0 Benign prostatic hyperplasia without lower urinary tract symptoms; F10.10 Alcohol abuse, uncomplicated; Z98.890 Other specified postprocedural states
CPT/HCPCS: 10009; 20220; 36415; 77012; 85025; 85610; 85730; 88173; 88305; 88307; 88311; 99152; J2250; J2310; J3010

== ENCOUNTER → 2023-08-11 10:39 | Outpatient (BNV) | payer MEDICARE, BC, SELFPAY | PROVIDERS: PCP Internal Medicine; Visit Provider Physician Assistant Surgical | DX: M84.454A Pathological fracture, pelvis, initial encounter for fracture (principal) | CPT/HCPCS: 38222; 77012 ==